=== PATIENT | male | born 1965 | race Caucasian/White ===

== ENCOUNTER 2017-07-01 07:36 | Inpatient (IN) | payer OTHER ==
[~2017-07-01] VITALS: Ht 182.9 cm; Wt 103.4 kg
[2017-07-01 07:39] VITALS: BP 142/92
[2017-07-01 07:52] LABS: ABSOLUTE BASOPHILS 0.1 thou/uL (0.0-0.2); ABSOLUTE LYMPHOCYTES 1.6 thou/uL (0.8-5.3); ABSOLUTE MONOCYTES 0.2 thou/uL (0.0-1.2); ABSOLUTE NEUTROPHILS 6.8 thou/uL (1.6-8.1); BASOPHILS 0.7 %; EOSINOPHILS 0.1 %; HEMATOCRIT 53.9 % (42.0-52.0); LYMPHOCYTES 18.8 %; MCH 31.6 pg (26.0-34.0); MCHC 33.4 g/dL (28.0-37.0); MCV 94.6 fL (80.0-100.0); MONOCYTES 2.4 %; MPV 9.1 fl. (7.2-11.1); NUCLEATED RBCS 0 /100WBC; PLATELET COUNT* 180 thou/uL (150-400); RDW-CV 13.7 % (10.5-14.5); WBC 8.8 thou/uL (4.0-11.0)
[2017-07-01 08:13] LABS: ALBUMIN 3.8 g/dL (3.4-5.0); ALKALINE PHOSPHATASE 85 U/L (46-116); ANION GAP 16 mmol/L (7-16); BUN 33 mg/dL (7-18); CALCIUM 8.1 mg/dL (8.5-10.1); CHLORIDE 102 mmol/L (98-107); CO2 21 mmol/L (21-32); CREATININE 2.2 mg/dL (0.6-1.3); GLUCOSE 139 mg/dL (70-99); LIPASE 104 U/L (73-393); POTASSIUM 3.8 mmol/L (3.5-5.1); SGOT 17 U/L (15-37); SGPT 35 U/L (30-65); SODIUM 139 mmol/L (136-145); TOTAL BILIRUBIN 1.2 mg/dL (<0.1-1.0); TOTAL PROTEIN 7.5 g/dL (6.4-8.2); TROPONIN-I LEVEL <0.06 ng/mL (<0.06)
[2017-07-01 09:26] LABS: INFLUENZA A ANTIGEN None Detected (None Detect); INFLUENZA B ANTIGEN None Detected (None Detect)
[2017-07-01 11:03] VITALS: BP 121/78
[2017-07-01 11:06] LABS: URINE BILIRUBIN NEGATIVE (Negative); URINE BLOOD NEGATIVE (Negative); URINE CLARITY CLEAR; URINE COLOR YELLOW; URINE GLUCOSE-RANDOM NEGATIVE (Negative); URINE KETONES NEGATIVE (Negative); URINE LEUKOCYTES-REFLEX NEGATIVE (Negative); URINE NITRITE-REFLEX NEGATIVE (Negative); URINE PROTEIN 1+ (Negative); URINE SPECIFIC GRAVITY >= 1.030 (1.005-1.030); URINE UROBILINOGEN 0.2 E.U./dl (0.2-1.0)
[2017-07-01 11:08] VITALS: BP 130/74
[2017-07-01 11:24] LABS: CASTS None Seen /LPF (None Seen); CRYSTALS None Seen /LPF (None Seen); SQUAMOUS 0-3 Few /LPF (0-3)
[2017-07-01 11:25] LABS: BACTERIA-REFLEX None Seen /HPF (None Seen); MUCUS 0-3 Light strn/LPF (None Seen); URINE RBC None Seen /HPF (0-2); URINE WBC-REFLEX 0-5 Rare /HPF (0-5)
--- NOTE | 2017-07-01 15:18 | NUR ---
RECEIVED PATIENT FROM EMERGENCY DEPARTMENT AT 1108. PATIENT ADMITTED TO ROOM 308. ADMISSION DOCUMENTATION COMPLETED WELL PHYSICAL ASSESSMENT, SEE CHARTING FOR DETAILS. VITAL SIGNS STABLE. OXYGEN SATURATION WITHIN NORMAL LIMITS ON ROOM AIR. PATIENT EDUCATED ON HOW TO USE CALL LIGHT APPROPRIATELY AND ORIENTED TO ROOM. DENIES NEEDS AT THIS TIME. CALL LIGHT WITHIN REACH. NURSING WILL CONTINUE TO MONITOR.
[2017-07-01 16:00] VITALS: BP 112/78
--- NOTE | 2017-07-01 17:52 | NUR ---
PATIENT REMAINS ALERT AND ORIENTED APPROPRIATELY. GIVEN SCHEDULED MEDICATIONS, SEE EMAR FOR DOCUMENTATION. PATIENT DENIES NEEDS AND/OR CONCERNS AT THIS TIME. CALL LIGHT WITHIN REACH. NURSING WILL CONTINUE TO MONITOR.
[2017-07-01 19:55] VITALS: BP 119/68
--- NOTE | 2017-07-02 00:13 | NUR ---
NOTED NEGATIVE C.DIFF RESULTS. SPECIAL PRECAUTIONS DISCONTINUED.
[2017-07-02 04:09] LABS: ABSOLUTE LYMPHOCYTES 1.1 thou/uL (0.8-5.3); ABSOLUTE MONOCYTES 0.6 thou/uL (0.0-1.2); ABSOLUTE NEUTROPHILS 3.4 thou/uL (1.6-8.1); BASOPHILS 0.3 %; EOSINOPHILS 0.8 %; HEMATOCRIT 39.6 % (42.0-52.0); LYMPHOCYTES 20.7 %; MCH 31.7 pg (26.0-34.0); MCHC 34.5 g/dL (28.0-37.0); MCV 91.9 fL (80.0-100.0); MONOCYTES 11.2 %; MPV 9.2 fl. (7.2-11.1); NUCLEATED RBCS 0 /100WBC; RBC 4.31 mil/uL (4.50-6.00); RDW-CV 13.4 % (10.5-14.5); WBC 5.1 thou/uL (4.0-11.0)
[2017-07-02 04:37] LABS: HEMOGLOBIN 13.7 gm/dL (14.0-18.0); PLATELET COUNT* 95 thou/uL (150-400)
--- NOTE | 2017-07-02 04:56 | NUR ---
PATIENT HAS REMAINED ALERT AND ORIENTED X 4 THROUGHOUT THE SHIFT AND RESTING QUIETLY ON HOURLY ROUNDS. 2 LOOSE STOOLS THIS SHIFT. SAMPLE TO LAB FOR C/S. TOLERATING CLEAR LIQUIDS. NO FEVER. IVF'S PER ORDERS. CONTINUE TO MONITOR.
[2017-07-02 06:10] LABS: CALCIUM 7.1 mg/dL (8.5-10.1); POTASSIUM 3.7 mmol/L (3.5-5.1)
[2017-07-02 06:13] LABS: CREATININE 1.2 mg/dL (0.6-1.3)
[2017-07-02 08:00] VITALS: BP 96/57
[2017-07-02] MEDS ORDERED: CIPRO250 M1 PO (09:51)
[2017-07-02] MEDS ORDERED: FLAGYL500 MG PO (09:51)
--- NOTE | 2017-07-02 14:17 | NUR ---
SW met with pt to complete initial assessment, introduce self, and SW role. Pt alert and oriented. Pt lives at home with his . Pt is independent and does not anticipate any dc needs. SW to remain available if need to assist with safe dc planning. Pt feels he will be ready to dc soon.
[2017-07-02 14:47] VITALS: BP 119/68
--- NOTE | 2017-07-02 15:33 | NUR ---
ASSUMED CARE THIS AM. A/O X 4, DENIES DISCOMFORT, SAYRA CLD AND REGULAR DIET WELL, DID HAVE LOOSE STOOL X 2 THIS AM. SAYRA IVF AND IV ABT WITHOUT DIFFICULTY. VITAL SIGNS STABLE, STOOL CULTURES STILL PENDING. DISCHARGE ORDERS RECEIVED, DISCHARGE INSTRUCTIONS, PRESCRIPTIONS, FOLLOW UP APPTS DISCUSSED WITH AND GIVEN TO PATIENT, WHO DENIES QUESTIONS AT THIS TIME. IV ACCESES DISCONTINUED WITHOUT INCIDENT. 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
--- NOTE | 2017-07-02 15:36 | EKG ---
[place] [address] ELECTROCARDIOGRAM REPORT Name: RAJWINDER BERGER Room: [address] ADM IN M.R.#: [id number] Admission: 07/01/17 Attend Phys: Marcin Smith MD Discharge: Date of : 65 Report #: [id number] THIS REPORT FOR: //name// [facility] ED Test Date: 2017-07-01 Test Time: 08:05:08 Pat Name: RAJWINDER BERGER Department: Room: [facility] Gender: M Wet End Helper: : 1965 Requested By: Chapincito Serna Order Number: [id number] MD: Raudel Jaar Measurements Intervals [place] Rate: 108 P: 48 OK: 151 QRS: 17 QRSD: 98 T: 2 QT: 312 QTc: 418 Interpretive Statements Sinus tachycardia inferior infarct age indeterminate possible Abnormal R-wave progression, late transition No previous ECG available for comparison Electronically Signed On 07-02-2017 15:35:52 TIME CHECKER by Raudel Jara [email or web address] <ELECTRONICALLY SIGNED> By: Raudel Jara MD, [facility] 07/02/17 1535 D: [id number] Raudel Jara MD, FACC /EPI
== END 2017-07-02 15:30 | disposition home or self-care (01) | DRG 372 ==
LOC: M.ERS 07:36 → M.3W 09:56 → M.TBA-ER 09:56 → M.3W 11:08
PROVIDERS: Family Medicine; ADMIT Internal Medicine
DX: A04.9 Bacterial intestinal infection, unspecified (principal); N17.9 Acute kidney failure, unspecified; R65.10 Systemic inflammatory response syndrome (SIRS) of non-infectious origin without acute organ dysfunction; E86.0 Dehydration; E86.9 Volume depletion, unspecified